=== PATIENT | female | born 1980 | race Two or more races ===

== ENCOUNTER → 2020-12-07 | Emergency (ER) | payer SELFPAY ==
[~2020-12-07] VITALS: Ht 162.6 cm; Wt 66.0 kg
[2020-12-07 21:07] VITALS: BP 160/80
== END ==
LOC: ER 20:57
DX: R11.2 Nausea with vomiting, unspecified (principal); Z53.21 Procedure and treatment not carried out due to patient leaving prior to being seen by health care provider
CPT/HCPCS: 93005